=== PATIENT | female | born 1930 | race Caucasian/White ===

== ENCOUNTER 2016-09-12 09:12 | Emergency (ER) | payer MEDICARE, BC ==
[2016-09-12 09:32] VITALS: BP 145/77
--- NOTE | 2016-09-12 09:44 | EDM.PDOC ---
ED HPI GENERAL MEDICAL PROBLEM - General Chief Complaint: Head Injury Stated Complaint: FALL FACIAL AND ARM INJURIES Time Seen by Provider: 09/12/16 09:45 Source of Information: Reports: Patient History Limitations: Reports: No Limitations - History of Present Illness INITIAL COMMENTS - FREE TEXT/NARRATIVE: 86-year-old female reports that she tripped over her walker and slammed into a wall face first at her home this morning. Did not break her glasses. to the bridge of her nose and contusion to the forehead. She denies any loss of consciousness. Suffered a large skin tear to her left lateral mid arm. She was able to walk afterwards with no injury to her hip or thigh or leg. 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 She had lumbar spine surgery laminectomy discectomy a year ago without improvement in right lower leg weakness. She has no neck pain. She denies any injuries to her lower extremities or her right upper extremity chest wall or abdomen. Onset: Today Onset Date: 09/12/16 Onset Time: 09:00 Duration: Minutes:, Constant Location: Reports: Head, Face, Upper Extremity, Left (Left lateral mid arm large skin tear.) Quality: Reports: Ache, Burning, Pressure Severity: Moderate Improves with: Reports: None Worsens with: Reports: None Context: Reports: Other (Tripped over her ). Denies: Activity, Exercise, Lifting, Sick Contact, Trauma Associated Symptoms: Denies: Confusion (wheelchair which propelled her forward into a wall face first to), Chest Pain, Cough, cough w sputum, Diaphoresis, Fever/Chills, Headaches, Loss of Appetite, Malaise, Nausea/Vomiting, Rash, Seizure, Shortness of Breath, Syncope, Weakness Treatments REQUISITION APPROVER: Reports: Other (see below) Head Pain Score (Numeric/FACES): 3 - Related Data Allergies Allergy/AdvReac Type Severity Reaction Status Date / Time rosuvastatin calcium Allergy Cannot Verified 09/12/16 09:29 [From Joao] Remember Home Meds: Home Meds Cyanocobalamin (Vitamin B-12) [Vitamin B-12] 1 tab PO DAILY 10/22/13 [History] Telmisartan [Micardis] 1 tab PO DAILY 10/22/13 [History] Verapamil HCl [Verapamil ER] 1 tab PO DAILY 10/22/13 [History] traMADol [Ultram] 50 mg PO Q6H PRN 03/01/14 [History] Past Medical History - Past Surgical History Neurological Surgical History: Reports: Laminectomy (Discectomy about a year ago she believes at L4-L5. Still has significant neuropathy in the right lower extremity.) Social & Family History - Living Situation & Occupation Living situation: Reports: , with Spouse Occupation: Retired ED ROS GENERAL - Review of Systems Review Of Systems: See Below Constitutional: Reports: Weakness. Denies: Fever, Chills, Malaise, Fatigue, Night Sweats, Diaphoresis, Decreased Appetite, Weight Loss (Chronically in her right lower extremity.), Weight Gain HEENT: Reports: Glasses Respiratory: Reports: Shortness of Breath (Which were bent but not broken when she fell.). Denies: Wheezing, Pleuritic Chest Pain ( Exertion), Cough, Sputum Cardiovascular: Reports: Blood Pressure Problem, Dyspnea on Exertion. Denies: Chest Pain, Claudication, Edema, Lightheadedness, Orthopnea (Has chronic hypertension well controlled with medication.), Palpitations (Sometime) GI/Abdominal: Reports: Constipation : Reports: Frequency, Incontinence Musculoskeletal: Reports: Back Pain (Stress and urge component chronic low back pain), Joint Pain Skin: Reports: Bruising, Other (Suffered a skin tear to the left lateral arm distal) Neurological: Reports: Difficulty Walking (22 right leg weakness due to peripheral neuropathy post nerve root compression and discectomy) Psychiatric: Reports: No Symptoms ED EXAM, HEAD INJURY - Physical Exam Exam: See Below Exam Limited By: No Limitations General Appearance: Alert, WD/WN, No Apparent Distress, Other (Obvious injuries to her mid face with abrasion to the bridge of her nose and contusion to bilateral midforehead.) Head: Facial Abrasions (Bridge of nose and contusion swelling to both midline of the forehead.) Nexus Criteria: No: Posterior, Midline Cervical Tenderness Eyes: Bilateral Eye: Normal Inspection Ears: Normal External Exam, Hearing Grossly Normal Nose: No Blood, Other. No: Septal Deformity, Dried Blood Throat/Mouth: Normal Inspection, Normal Lips (Abrasion bridge of nose proximal the 1 cm x 1 cm.), Normal Oropharynx Neck: Non-Tender, Full Range of Motion, Normal Alignment, Normal Inspection Respiratory: No Respiratory Distress, Lungs Clear, Normal Breath Sounds, No Accessory Muscle Use, Other (No chest wall tenderness.) Cardiovascular: Normal Peripheral Pulses, Regular Rate, Rhythm, No Edema, No Murmur GI/Abdominal Exam (Abbreviated): Normal Bowel Sounds, Soft, Non-Tender, No Organomegaly Back Exam: Normal Inspection, Decreased Range of Motion. No: Full Range of Motion, CVA Tenderness (L), CVA Tenderness (R) Extremities: Other (She has full range of motion of her left upper extremity. No evidence of bony injuries. Large 8 x 8 cm skin tear left lateral distal arm. This wound will be cleansed and then skin replaced as best as possible and Steri -Stripped back is places the skin tear is very thin. Not amenable to) Neurologic: Alert, Normal Mood/Affect, Oriented x 3, Motor Weakness (Right lower extremity.) Skin: Normal Color, Warm/Dry - Cinthya Coma Score Best Eye Response (Cinthya): (4) Open Spontaneously Best Verbal Response (Cinthya): (5) Oriented Best Motor Response (Oscar): (6) Obeys Commands Cinthya Total: 15 Course - Vital Signs Last Recorded V/S: Last Vital Signs Temp 36.5 C 09/12/16 09:29 Pulse 73 09/12/16 09:29 Resp BP 145/77 H 09/12/16 09:29 Pulse Ox 97 09/12/16 09:29 - Radiology Interpretation Free Text/Narrative:: 86-year-old female presents the ED after tripping and falling at home. Over her wheelchair walker. Basically face planted into the wall with contusion to the bridge of her nose and forehead. No cervical neck pain. Large skin tear occurred to the left upper specimen the distal lateral aspect. She does not want a tetanus shot she's never had one and does not wish to be updated. Plan CT head will be done and she does bruise very easily. She is ecchymotic and right upper extremity in numerous places. Skin tear will be cleansed and then skin replaced back in close to anatomic position as possible and Steri-Stripped in place. - Re-Assessments/Exams Free Text/Narrative Re-Assessment/Exam: 09/12/16 10:30: CT of the brain reveals no intracranial hemorrhage or and no skull fractures. There is diminished density within the periventricular white matter compatible with small vessel ischemic changes. This is placed to the skin tear back in anatomical position more unable to Steri-Strip it. He'll therefore have it coverage with bacitracin and a wrap to keep it in place. I would suggest dressing changes in about 72 hours time. Departure - Departure Time of Disposition: 10:55 Disposition: Home, Self-Care 01 Condition: fair Clinical Impression: Skin tear of left upper extremity Fall as cause of accidental injury at home as place of occurrence Qualifiers: Encounter type: initial encounter Qualified Code(s): W19.XXXA - Unspecified fall, initial encounter; Y92.009 - Unspecified place in unspecified non- institutional (private) residence as the place of occurrence of the external cause Contusion of forehead Qualifiers: Encounter type: initial encounter Qualified Code(s): S00.83XA - Contusion of other part of head, initial encounter Abrasion of nose Qualifiers: Encounter type: initial encounter Qualified Code(s): S00.31XA - Abrasion of nose, initial encounter - Discharge Information Forms: ED Department Discharge Additional Instructions: Evaluation in the emergency department today in regards to fall at home with blunt force trauma to the midface involving the bridge of the nose and the forehead. CT scan of the brain did not reveal any skull fractures or intracranial bleeding. Large skin tear appreciated to the left lateral lower arm. He was placed back in anatomical position and covered with bacitracin or antibiotic ointment and Telfa pad. Wrap placed. Just the wrap remain in place for the next 48 hours and then removed. Bacitracin to be applied to the wound daily until healed and found to be wrapped again until healed which will likely be 14-20 days. Return to the ED if any signs of infection occur such as redness swelling or increased pain.
--- NOTE | 2016-09-12 10:42 | CT ---
Head CT Technique: Multiple axial sections through the brain were obtained. Intravenous contrast was not utilized. Comparison: No previous intracranial imaging is available. Findings: Ventricles along with basal cisterns and sulci over the convexities are within normal limits for the patient's age. No evidence of intracranial hemorrhage. Minimal diminished density is noted within the periventricular white matter compatible with small vessel ischemic demyelination change. No other abnormal parenchymal densities are seen. No midline shift or mass effect is seen. Mild atherosclerotic calcification is seen within the carotid siphon. Visualized sinuses are clear. No acute calvarial abnormality is appreciated. Impression: 1. Minimal senescent change. Nothing acute is identified on noncontrast head CT study. Diagnostic code #2
== END 2016-09-12 11:10 | disposition home or self-care (01) ==
LOC: JD.ED 09:12
DX: S41.112A Laceration without foreign body of left upper arm, initial encounter (principal); S00.83XA Contusion of other part of head, initial encounter; S00.31XA Abrasion of nose, initial encounter; Z88.8 Allergy status to other drugs, medicaments and biological substances; Z79.899 Other long term (current) drug therapy; W19.XXXA Unspecified fall, initial encounter; Y92.009 Unspecified place in unspecified non-institutional (private) residence as the place of occurrence of the external cause
CPT/HCPCS: 70450; 70450-26; 99282; 99284-25